=== PATIENT | male | born 1955 | race Caucasian/White ===

== ENCOUNTER 2020-07-15 04:53 | Emergency (ER) | payer OTHER ==
[~2020-07-15] VITALS: Ht 182.9 cm; Wt 104.5 kg
[~2020-07-15 04:53] MED LIST: CYCL-1 PO; HYDR-3965 PO; HYDR-4383 PO; IBUP-1984 PO; QUET25TA PO; VENL-191 PO
[2020-07-15] MEDS ORDERED: CEPH500C5 PO (06:16)
[2020-07-15 06:28] VITALS: BP 159/94
== END 2020-07-15 06:32 | disposition home or self-care (01) ==
LOC: ER 04:54
DX: L03.114 Cellulitis of left upper limb (principal); Z87.19 Personal history of other diseases of the digestive system; I10 Essential (primary) hypertension; J44.9 Chronic obstructive pulmonary disease, unspecified; Z88.0 Allergy status to penicillin; Z79.899 Other long term (current) drug therapy
CPT/HCPCS: 99283

== ENCOUNTER 2021-10-24 07:43 | Observation (INO) | payer OTHER ==
[~2021-10-24] VITALS: Ht 182.9 cm; Wt 97.5 kg
[2021-10-24] VITALS (18 sets, daily range): BP systolic 106–163; BP diastolic 46–89
[2021-10-24 08:07] LABS: CLARITY,URINE CLEAR (Clear); COLOR,URINE YELLOW (Yellow); GLUCOSE, URINE NEGATIVE (Neg); KETONES,URINE 15 mg/dl (Neg); LEUKOCYTE ESTERASE ,URINE NEGATIVE (Neg); NITRITES, URINE NEGATIVE (Neg); OCCULT BLOOD,URINE NEGATIVE (Neg); PROTEIN,URINE NEGATIVE (Neg); UROBILINOGEN,URINE 0.2 E.U/dL (0.2-1.0)
[2021-10-24 08:08] LABS: UA COLLECTION TYPE CLN CATCH MIDSTREAM
[2021-10-24 08:33] LABS: BASOPHILS % (AUTO) 0.3 % (0-1); EOSINOPHILS # (AUTO) 0.1 X10'3 (0-0.9); EOSINOPHILS % (AUTO) 0.4 % (0-6); HEMATOCRIT 51.7 % (42.0-52.0); HEMOGLOBIN 17.2 g/dl (14.0-17.9); LYMPHOCYTES # (AUTO) 1.1 X10'3 (1.1-4.8); LYMPHOCYTES % (AUTO) 6.6 % (21-51); MEAN CORPUSCULAR HEMOGLOBIN 31.4 PG (27.0-31.0); MEAN CORPUSCULAR HGB CONC 33.2 g/dL (33.0-36.5); MEAN CORPUSCULAR VOLUME 94.7 FL (78-98); MONOCYTES # (AUTO) 1.2 X10'3 (0-0.9); MONOCYTES % (AUTO) 6.9 % (2-12); NEUTROPHILS # (AUTO) 14.4 X10'3 (1.8-7.7); NEUTROPHILS % (AUTO) 85.8 % (42-75); PLATELET COUNT 237 X10'3 (140-440); RED BLOOD COUNT 5.47 X10'6 (4.70-6.10); RED CELL DISTRIBUTION WIDTH 13.4 % (11.5-14.5); WHITE BLOOD COUNT 16.8 X10'3 (4.5-11.0)
[2021-10-24] MEDS ORDERED: ringers solution, lacted 1,000 ML IV ONE ×3 (08:35→11:25)
[2021-10-24] MEDS ORDERED: morphine 4 MG/ML inj SYRINge IV ONE ×2 (08:35→11:25)
[2021-10-24 08:42] LABS: ALANINE AMINOTRANSFERASE 19 U/L (12-78); ALBUMIN 3.6 G/DL (3.4-5.0); ALKALINE PHOSPHATASE 97 IU/L (46-116); ANION GAP 10 (8-16); ASPARTATE AMINO TRANSFERASE 24 U/L (10-37); BILIRUBIN,TOTAL 1.2 MG/DL (0.1-1.0); BLOOD UREA NITROGEN 9 MG/DL (7-18); BUN/CREATININE RATIO 11.5 (5.4-32.0); CALCIUM 8.6 MG/DL (8.5-10.1); CHLORIDE 104 MMOL/L (99-107); CREATININE 0.78 MG/DL (0.60-1.10); GLUCOSE 130 MG/DL (70-104); LIPASE 56 U/L (73-393); POTASSIUM 3.3 MMOL/L (3.5-5.1); SODIUM 135 MMOL/L (135-145); TOTAL CARBON DIOXIDE 21.5 MMOL/L (24-32); TOTAL PROTEIN 7.1 G/DL (6.4-8.2); eGFR > 90 ML/MIN
[2021-10-24] MEDS ORDERED: iohexol 300mg/ml 100ml inj. ONE (09:18)
[2021-10-24] MEDS ORDERED: ringers solution, lacted 1,000 ML IV SCH ×2 (11:25→14:30)
[2021-10-24] MEDS ORDERED: ondansetron/PF 4mg/2ml inj IV PRN ×3 (11:25→14:30)
[2021-10-24] MEDS ORDERED: hydrALAZINE 20mg/ml inj. IV PRN ×2 (11:25→14:30)
[2021-10-24] MEDS ORDERED: fentaNYL/PF 50MCG/1 ML 2ML syringe IV PRN ×2 (11:25)
[2021-10-24] MEDS ORDERED: morphine 4 MG/ML inj SYRINge IV PRN ×2 (11:25→14:30)
[2021-10-24] MEDS ORDERED: morphine 2 MG/ML inj. syringe IV PRN ×4 (11:25→14:30)
[2021-10-24] MEDS ORDERED: labetalol 20mg/4ml (5mg/ml) syringe IV PRN ×2 (11:25→14:30)
[2021-10-24] MEDS ORDERED: acetaminophen 325mg tablet PO PRN (13:40)
[2021-10-24] MEDS ORDERED: magnesium hydroxide 30ml (MOM) UD suspension PO PRN (13:40)
[2021-10-24] MEDS ORDERED: mag hydrox/Alum hydrox/simeth 30ml oral suspension PO PRN (13:40)
[2021-10-24] MEDS ORDERED: sevoflurane 250ml liquid IH ONE (14:02)
[2021-10-24] MEDS ORDERED: midazolam 1 mg/ML 2ml injection ONE (14:11)
[2021-10-24] MEDS ORDERED: fentaNYL /PF 50mcg/ml 5ml ampule ONE (14:13)
[2021-10-24] MEDS ORDERED: haloperidol lactate 5mg/ml inj IM PRN (14:15)
[2021-10-24] MEDS ORDERED: LORazepam 2 mg/ml vial IV PRN (14:15)
[2021-10-24] MEDS ORDERED: dextrose 50%-water 50ml dispensing syringe IV PRN (14:15)
[2021-10-24] MEDS ORDERED: haloperidol 5mg tablet PO PRN (14:15)
[2021-10-24] MEDS ORDERED: acetaminophen 1,000mg/100ml IV 100 ML IV PRN (14:30)
[2021-10-24] MEDS ORDERED: HYDROmorphone/PF 0.2 MG/ML SYRINGE IV PRN ×2 (14:30)
[2021-10-24] MEDS ORDERED: meperidine/PF 25mg/ml syringe IV PRN (14:30)
[2021-10-24] MEDS ORDERED: proCHLORperazine 10 MG/2 ml inj IV PRN (14:30)
[2021-10-24] MEDS ORDERED: BUPIVAcaine 0.5% inj/PF 30 ML ONE (14:34)
[2021-10-24] MEDS ORDERED: LIDOcaine 1% (10mg/ml)w/preservative inj. 20ml MDV ONE (14:35)
[2021-10-24] MEDS ORDERED: dexamethasone sod phosphate 4mg/ml inj. ONE (14:36)
[2021-10-24] MEDS ORDERED: propofol inj 20 ML IV ONE (14:36)
[2021-10-24] MEDS ORDERED: ondansetron/PF 4mg/2ml inj ONE (14:36)
[2021-10-24] MEDS ORDERED: rocuronium 10mg/ml inj IV ONE (14:36)
[2021-10-24] MEDS ORDERED: LIDOcaine 2% (20mg/ml) 5ml vial ONE (14:36)
[2021-10-24] MEDS ORDERED: ceFOXitin 1000 MG inj ONE ×2 (14:36)
[2021-10-24] MEDS ORDERED: 0.9 % SODIUM CHLORIDE 10 ML VIAL ONE (14:41)
[2021-10-24] MEDS ORDERED: ePHEDrine 50MG/ML INJ. ONE (14:41)
[2021-10-24] MEDS ORDERED: neostigmine methylsulfate 1 MG/ML 10ml vial ONE (15:18)
[2021-10-24] MEDS ORDERED: glycopyrrolate 0.2mg/ml inj ONE (15:18)
--- NOTE | 2021-10-24 15:33 | NUR ---
Received from OR via [facility] IN STABLE CONDITION , accompanied by Anesthesiologist and BARREL MARKER report given by BARREL MARKER AND Anesthesiolgist. Addendum: 10/24/21 at 1619 by Camila Kent RN Amended: Links added.
[2021-10-24] MEDS ORDERED: metroNIDAZOLE-Flagyl 500mg/NS 100 ML IV SCH (16:00)
[2021-10-24] MEDS ORDERED: HYDROcodone/acetaminophen 5mg/325mg tablet PO PRN (16:45)
--- NOTE | 2021-10-24 17:13 | NUR ---
PATIENT DISCHARGED FROM PACU IN STABLE CONDITION AFTER REPORT GIVEN TO RN TAKING OVER PATIENTS CARE. PATIENT TRANSFERRED TO ROOM 349B WITH RN. Addendum: 10/24/21 at 1726 by Camila Kent RN Amended: Links added.
--- NOTE | 2021-10-24 18:12 | NUR ---
Problems reprioritized. Patient report given, questions answered & plan of care reviewed with ERNESTINA Tomas.
--- NOTE | 2021-10-24 18:24 | NUR ---
Patient in room [facility]. I have received report from ERNESTINA Islas and had the opportunity to ask questions and assume patient care.
[2021-10-24] MEDS: docusate sod 100mg capsule PO SCH (20:44)
[2021-10-24] MEDS: HYDROcodone/acetaminophen 10/325mg tab PO PRN (20:44)
[2021-10-24] MEDS: normal saline 1000ml 1,000 ML IV SCH ×2 (20:45→23:40)
[2021-10-24] MEDS: thiamine 100mg/ml 2ml inj. IV SCH (20:46)
[2021-10-25] VITALS: BP 139/63
[2021-10-25] MEDS ORDERED: metroNIDAZOLE-Flagyl 500mg/NS 100 ML IV SCH
[2021-10-25] MEDS: levoFLOXACIN-Levaquin 500mg/D5 100 ML IV SCH ×2 (00:01→10:50)
[2021-10-25] MEDS: HYDROcodone/acetaminophen 10/325mg tab PO PRN (00:32)
[2021-10-25] MEDS ORDERED: magnesium 2GM in 50ml NS 50 ML IV PRN (00:55)
[2021-10-25] MEDS ORDERED: potassium CL 10mEq/100ml bag 100 ML IV PRN (00:55)
[2021-10-25] MEDS ORDERED: magnesium 4gm in 100ml NS 100 ML IV PRN (00:55)
[2021-10-25] MEDS ORDERED: potassium Cl 20 mEq SR tablet PO PRN ×2 (00:55)
[2021-10-25] MEDS ORDERED: magnesium Cl slow-release 64mg tablet PO PRN (00:55)
--- NOTE | 2021-10-25 01:52 | NUR ---
Pt. walked with nursing 600F.He passed gas after walking.We will continue with pt. care.
[2021-10-25 04:00] VITALS: BP 122/60
--- NOTE | 2021-10-25 06:05 | NUR ---
Problems reprioritized. Patient report given, questions answered & plan of care reviewed with ERNESTINA Fontaine.
--- NOTE | 2021-10-25 06:28 | NUR ---
Patient in room [facility]. I have received report from ERNESTINA Tomas and had the opportunity to ask questions and assume patient care.
[2021-10-25 07:11] LABS: BASOPHILS % (AUTO) 0.2 % (0-1); EOSINOPHILS % (AUTO) 0 % (0-6); HEMATOCRIT 43.3 % (42.0-52.0); HEMOGLOBIN 14.8 g/dl (14.0-17.9); LYMPHOCYTES % (AUTO) 6.2 % (21-51); MEAN CORPUSCULAR HEMOGLOBIN 32.1 PG (27.0-31.0); MEAN CORPUSCULAR HGB CONC 34.3 g/dL (33.0-36.5); MEAN CORPUSCULAR VOLUME 93.6 FL (78-98); MEAN PLATELET VOLUME 8.4 FL (7.4-10.4); MONOCYTES # (AUTO) 1.3 X10'3 (0-0.9); MONOCYTES % (AUTO) 7.9 % (2-12); NEUTROPHILS # (AUTO) 13.8 X10'3 (1.8-7.7); NEUTROPHILS % (AUTO) 85.7 % (42-75); PLATELET COUNT 196 X10'3 (140-440); RED BLOOD COUNT 4.63 X10'6 (4.70-6.10); RED CELL DISTRIBUTION WIDTH 13.5 % (11.5-14.5); WHITE BLOOD COUNT 16.1 X10'3 (4.5-11.0)
[2021-10-25 07:24] LABS: ALBUMIN 2.9 G/DL (3.4-5.0); ANION GAP 9 (8-16); BLOOD UREA NITROGEN 13 MG/DL (7-18); BUN/CREATININE RATIO 14.8 (5.4-32.0); CALCIUM 8.8 MG/DL (8.5-10.1); CHLORIDE 102 MMOL/L (99-107); CREATININE 0.88 MG/DL (0.60-1.10); GLUCOSE 112 MG/DL (70-104); POTASSIUM 3.9 MMOL/L (3.5-5.1); SODIUM 136 MMOL/L (135-145); TOTAL CARBON DIOXIDE 24.7 MMOL/L (24-32); eGFR 87 ML/MIN
[2021-10-25 08:00] VITALS: BP 112/62
[2021-10-25] MEDS ORDERED: folic acid 1mg/0.2ml inj IV SCH (08:00)
[2021-10-25] MEDS ORDERED: K and/or MAG REPLACEMENT MC SCH (08:00)
[2021-10-25] MEDS ORDERED: enoxaparin 40mg/0.4ml syringe SQ SCH (08:00)
[2021-10-25] MEDS ORDERED: CHLO25TA10 PO (08:20)
--- NOTE | 2021-10-25 08:58 | NUR ---
PAGER ID: [phone] MESSAGE: Noah Doll Room 349B Patient is doing good and hoping to go home today. Please advise if he is to be discharged. Thank you. Beryl [phone]
[2021-10-25] MEDS: docusate sod 100mg capsule PO SCH (10:48)
[2021-10-25] MEDS: thiamine 100mg/ml 2ml inj. IV SCH (10:48)
[2021-10-25] MEDS ORDERED: HYDR-3965 PO (11:25)
[2021-10-25] MEDS ORDERED: METR-159 PO (11:25)
[2021-10-25] MEDS ORDERED: CIPR-202 PO (11:25)
--- NOTE | 2021-10-25 12:30 | NUR ---
Patient discharged at 12:30 with instructions and verbalizing understanding of instructions accompanied by nursing staff and family member going home via private vehicle. IV line has been removed and cannula was intact. Paperwork and prescriptions were delivered at bedside, education was provided and questions were answered. Pt to make follow up appointment with provider. Patient is stable and appropriate for discharge.
[2021-10-26] MEDS ORDERED: LORazepam 2 mg/ml vial IV PRN (14:15)
[2021-10-26] MEDS ORDERED: LORazepam 1 MG tablet PO PRN (14:15)
[2021-10-28] MEDS ORDERED: LORazepam 1 MG tablet PO PRN (14:15)
[2021-10-28] MEDS ORDERED: LORazepam 2 mg/ml vial IV PRN (14:15)
[2021-10-29] MEDS ORDERED: thiamine 100mg tablet PO SCH (08:00)
[2021-10-29] MEDS ORDERED: folic acid 1mg tablet PO SCH (08:00)
== END 2021-10-25 13:18 | disposition home or self-care (01) ==
LOC: ER 07:44 → SUR 3N 13:42
PROVIDERS: ADMIT Family Medicine; ATTEND Family Medicine
DX: K35.891 Other acute appendicitis without perforation, with gangrene (principal); Z20.822 Contact with and (suspected) exposure to COVID-19; K38.1 Appendicular concretions; I10 Essential (primary) hypertension; E87.6 Hypokalemia; J44.9 Chronic obstructive pulmonary disease, unspecified; F17.290 Nicotine dependence, other tobacco product, uncomplicated; F10.20 Alcohol dependence, uncomplicated; F15.10 Other stimulant abuse, uncomplicated; Z88.0 Allergy status to penicillin; Z79.899 Other long term (current) drug therapy; Z85.048 Personal history of other malignant neoplasm of rectum, rectosigmoid junction, and anus
CPT/HCPCS: 36415; 44970; 74177; 80048; 80053; 81003; 82948; 83690; 85025; 87635; 93005; 96361; 96365; 96367; 96372; 96375; 96376; 99285; C9803; G0378; J0694; J1100; J1650; J1956; J2250; J2270; J2405; J2704; J2710; J3010; J3411; J3490; J7030; J7120; Q9967; S0020; A4215; A4314; A4618; A7000